=== PATIENT | male | born 1995 | race Caucasian/White ===

== ENCOUNTER 2019-10-04 13:26 | Emergency (ER) | payer OTHER ==
[~2019-10-04] VITALS: Ht 172.7 cm; Wt 75.0 kg
[2019-10-04 13:31] VITALS: BP 128/85; TEMP 98.6
[2019-10-04 13:52] LABS: COLLECTION METHOD CLEAN CATCH
[2019-10-04 13:58] LABS: MUCOUS Present /lpf; PH 7 (5-8); SQUAMOUS EPITHELIAL None Seen /hpf; URINE APPEARANCE Clear; URINE BACTERIA None Seen /hpf; URINE BILIRUBIN Negative (NEGATIVE); URINE BLOOD Negative (NEGATIVE); URINE COLOR Yellow; URINE GLUCOSE Negative (NEGATIVE); URINE KETONE Negative (NEGATIVE); URINE LEUKOCYTE ESTERASE Negative (NEGATIVE); URINE NITRATE Negative (NEGATIVE); URINE PROTEIN(semi-quant) Negative (NEGATIVE); URINE RBC 0-2 /hpf; URINE UROBILINOGEN Negative (NEGATIVE)
[2019-10-04 15:19] VITALS: PULSE 54
== END 2019-10-04 15:19 | disposition home or self-care (01) ==
LOC: COL.ER 13:26
PROVIDERS: Emergency Medicine
DX: N45.1 Epididymitis (principal)
CPT/HCPCS: J0696; J1885

== ENCOUNTER → 2020-01-02 | Outpatient (CLI) | payer OTHER | LOC: ZCOL.LAB 15:12 | DX: Z20.828 Contact with and (suspected) exposure to other viral communicable diseases (principal) ==